=== PATIENT | male | born 1995 | race Caucasian/White ===

== ENCOUNTER 2023-07-15 22:29 | Emergency (ER) | payer OTHER ==
[~2023-07-15] VITALS: Ht 182.9 cm; Wt 59.0 kg
[2023-07-15 22:50] VITALS: BP 134/67; TEMP 98.5; O2SAT 99
== END 2023-07-15 23:10 | disposition home or self-care (01) ==
LOC: ER 22:44
DX: M79.604 Pain in right leg (principal)